=== PATIENT | female | born 1980 | race Caucasian/White ===

== ENCOUNTER 2019-12-15 18:28 | Inpatient (IN) | payer MEDICAID ==
[~2019-12-15] VITALS: Ht 162.6 cm; Wt 68.0 kg
[2019-12-15] MEDS ORDERED: SULI200T4 PO (18:47)
[2019-12-15] MEDS ORDERED: DULO60CA64 PO (18:47)
[2019-12-15] MEDS ORDERED: CARI350T27 PO (18:47)
[2019-12-15] MEDS ORDERED: HYDR-3980 PO (18:47)
[2019-12-15] MEDS ORDERED: FERR325T23 PO (18:47)
[2019-12-15] MEDS ORDERED: GABA600T12 PO (18:47)
[2019-12-15] MEDS ORDERED: TRAM50TA2 PO (18:47)
[2019-12-15] MEDS ORDERED: ERGO500014 PO (18:53)
[2019-12-15 19:00] VITALS: BP 127/72
--- NOTE | 2019-12-15 19:01 | NUR ---
YOUTH MANAGER NOTES RECEIVED PT FROM 2 AMBULANCE PERSONNEL FROM [place] [facility], PT IS AWAKE, ALERT AND ORIENTED, ABLE TO TRANSFER FROM [facility] TO BED, MADE COMFORTABLE, ROOM SET UP ORIENTATION PROVIDED TO PT, VERBALIZED UNDERSTANDING, WITH COMPLAINT OF ABDOMINAL AND BACK PAIN, NOT IN DISTRESS, AWAITING ADMITTING ORDERS FROM MD, KEPT WARM AND COMFORTABLE IN BED.
--- NOTE | 2019-12-15 19:05 | NUR ---
FURNITURE REMOVALIST'S ASSISTANT NOTES RECEIVED PT IN BED AWAKE AND ABLE TO MAKE NEEDS KNOWN. PT A/O X3. RESPIRATIONS EVEN AND UNLABORED WITH NO S/S OF ACUTE DISTRESS OR SOB NOTED AT THIS TIME. AWAITING ADMITTING ORDERS. PT NOTED WITH RAC #20G PATENT AND INTACT AND SL. SAFETY MEASURES IN PLACE WITH BED IN LOWEST LOCKED POSITION WITH SIDE RAILS UP X2. CALL LIGHT WITHIN REACH. WILL CONTINUE TO MONITOR.
[2019-12-15] MEDS ORDERED: LORAZEPAM INJ 2 MG/ML VIAL IV ONE (20:30)
[2019-12-15 20:47] VITALS: BP 121/69
[2019-12-15] MEDS ORDERED: ACETAMINOPHEN 325 MG TABLET PO PRN (21:00)
[2019-12-15] MEDS ORDERED: MAGNESIUM HYDROXIDE 30 ML UDC PO PRN (21:00)
[2019-12-15] MEDS ORDERED: MAG HYDROX/AL HYDROX/SIMETH 30 ML UDC PO PRN (21:00)
[2019-12-15] MEDS ORDERED: MORPHINE SULFATE INJ 2 MG/ML DISP.SYRIN IV PRN (21:00)
[2019-12-15] MEDS ORDERED: ONDANSETRON HCL/PF 4 MG/2 ML VIAL IVP PRN (21:00)
[2019-12-15] MEDS ORDERED: ZOLPIDEM TARTRATE 5 MG TABLET PO PRN (21:00)
[2019-12-15] MEDS ORDERED: ALBUTEROL FS 2.5 MG/3 ML VIAL.NEB NEB PRN (21:30)
[2019-12-15] MEDS: IV NS 0.9% 1,000 ML IV PRN (22:40)
[2019-12-15] MEDS: HYDROCODONE/APAP 5/325MG 1 EACH TABLET PO PRN (23:04)
[2019-12-16] MEDS: TRAMADOL HCL 50 MG TABLET PO PRN ×2 (00:11→17:31)
[2019-12-16 00:59] VITALS: BP 128/67
[2019-12-16] MEDS: LORAZEPAM INJ 2 MG/ML VIAL IV PRN ×5 (02:37→22:05)
[2019-12-16 04:00] VITALS: BP 120/70
[2019-12-16] MEDS: HYDROCODONE/APAP 5/325MG 1 EACH TABLET PO PRN ×4 (04:11→20:07)
--- NOTE | 2019-12-16 07:30 | NUR ---
ACCOUNTANCY PROFESSOR NOTES PT IN BED AWAKE AND ABLE TO MAKE NEEDS KNOWN. PT A/O X3. RESPIRATIONS EVEN AND UNLABORED WITH NO S/S OF ACUTE DISTRESS OR SOB NOTED AT THIS TIME. NO COMPLAINTS OF PAIN AT THIS TIME. PT ON TELE MONITORING WITH NORMAL SINUS RHYTHM. PT NOTED WITH RAC #22G PATENT AND INTACT INFUSING NS @100CC/HR. SAFETY MEASURES IN PLACE WITH BED IN LOWEST LOCKED POSITION WITH SIDE RAILS UP X2. CALL LIGHT WITHIN REACH. WILL ENDORSE TO ONCOMING NURSE FOR CRYSTAL.
--- NOTE | 2019-12-16 07:40 | NUR ---
DINING ROOM CAPTAIN NOTES PATIENT AWAKE IN BED, ALERT AND ORIENTED X3, NO RESPIRATORY DISTRESS, NO C/O PAIN AT THIS TIME. PATIENT'S SKIN WARM TO TOUCH, IV ACCESS SITE INTACT AND PATENT, NS INFUSING AT 100ML/HR ON THE RAC #22G. PATIENT'S NEEDS ATTENDED, BED ON LOWEST LOCKED POSITION, CALL LIGHT WITHIN REACH. WILL CONTINUE TO MONITOR.
[2019-12-16 08:00] VITALS: BP 128/75
[2019-12-16] MEDS: FERROUS SULFATE (325 MG) 325 MG/TAB TABLET PO SCH ×2 (08:29→17:31)
[2019-12-16] MEDS: GABAPENTIN 300 MG CAPSULE PO SCH ×2 (08:29→17:31)
[2019-12-16] MEDS: CARISOPRODOL 350 MG TABLET PO SCH ×3 (08:29→17:30)
[2019-12-16] MEDS: SULINDAC 200 MG TABLET PO SCH ×2 (08:29→17:30)
[2019-12-16] MEDS ORDERED: MULTIVITAMINS,THERAGRAN 1 UDTAB TABLET PO SCH (09:00)
[2019-12-16] MEDS ORDERED: THIAMINE HCL 100 MG TABLET PO SCH (09:00)
[2019-12-16] MEDS ORDERED: DULOXETINE HCL 30 MG CAPSULE.DR PO SCH (09:00)
[2019-12-16] MEDS ORDERED: FOLIC ACID 1 MG TABLET PO SCH (09:00)
[2019-12-16] MEDS: IV NS 0.9% 1,000 ML IV PRN ×2 (09:08→19:09)
[2019-12-16 13:32] LABS: BASOPHILS % (AUTO) 0.6 % (0.0-2.0); EOSINOPHILS % (AUTO) 0.5 % (0.0-6.0); HEMATOCRIT 30 % (33-45); HEMOGLOBIN 9.5 g/dL (11.5-14.8); LYMPHOCYTES # (AUTO) 1.9 /CMM (0.8-4.8); LYMPHOCYTES % (AUTO) 36.5 % (20.0-44.0); MEAN CORPUSCULAR HGB CONC 32 g/dl (31.0-36.0); MEAN CORPUSCULAR VOLUME 80 fL (82-100); MONOCYTES # (AUTO) 0.3 /CMM (0.1-1.30); NEUTROPHILS % (AUTO) 57.4 % (43.0-81.0); PLATELET COUNT (AUTO) 345 /CMM (150-450); RED BLOOD CELL COUNT(AUTO) 3.72 MIL/uL (4.0-5.2); WHITE BLOOD COUNT (AUTO) 5.3 K/uL (4.3-11.0)
[2019-12-16 13:48] LABS: ALBUMIN 3.1 g/dL (3.4-5.0); BILIRUBIN,TOTAL 0.4 mg/dL (0.2-1.0); CALCIUM, SERUM 8.1 mg/dL (8.5-10.1); CREATININE 1.1 mg/dL (0.6-1.3); MAGNESIUM 1.9 mg/dL (1.8-2.4); PHOSPHORUS 2.7 mg/dL (2.5-4.9); POTASSIUM 3.1 mmol/L (3.5-5.1); TOTAL PROTEIN, SERUM 6.6 g/dL (6.4-8.2)
[2019-12-16 13:57] LABS: THYROID STIMULATING HORMONE 0.569 uIU/mL (0.358-3.74)
[2019-12-16 16:00] VITALS: BP 140/84
--- NOTE | 2019-12-16 18:44 | NUR ---
M/S RN NOTES PATIENT RESTING IN BED, NO RESPIRATORY DISTRESS, NO C/O PAIN AT THIS TIME. PATIENT'S SKIN WARM TO TOUCH, IV ACCESS SITE INTACT AND PATENT. PATIENT'S NEEDS ATTENDED, BED ON LOWEST LOCKED POSITION, CALL LIGHT WITHIN REACH. WILL ENDORSE TO ONCOMING NURSE.
--- NOTE | 2019-12-16 19:05 | NUR ---
MS RN NOTES RECEIVED PT BED AWAKE AND ABLE TO MAKE NEEDS KNOWN. PT A/O X3. RESPIRATIONS EVEN AND UNLABORED WITH NO S/S OF ACUTE DISTRESS OR SOB NOTED. NO COMPLAINTS OF PAIN AT THIS TIME. PT NOTED WITH IV #22G RAC PATENT AND INTACT INFUSING AT 100ML/HR. SAFETY MEASURES IN PLACE WITH BED IN LOWEST LOCKED POSITION WITH SIDE RAILS UP X2. CALL LIGHT WITHIN REACH. WILL CONTINUE TO MONITOR.
[2019-12-16 20:00] VITALS: BP 129/79
--- NOTE | 2019-12-16 23:30 | NUR ---
MS RN NOTES PT NOTED NOT IN ROOM. WENT TO CHECK, PT NOT IN ROOM. LOOKED ON UNIT, PT NOT NOT ON IT. CHECKED [place], AND ON OTHER FLOORS, NOT SEEN. HOSPITAL WORKER STATED THEY SAW HER SNEAK OUT BACK STAIRS ON UNIT. CHECK STAIRS PT NOT THERE. NOTIFIED SECURITY TO CHECK [facility]ER[facility]. PT NOTED LEAVING UNIT AND LEAVING HOSPITALS. CHECKED OUTSIDE WHERE CAMERAS SHOWED WELL AROUND THE HOSPITAL PREMESIS, AND PT NOT FOUND. PT NOTED TO STILL HAVE IV ACCESS. CHARGE NURSE, NURSE CAKE STRIPPER, MD, AND POLICE MADE AWARE.
[2019-12-21] MEDS ORDERED: ERGOCALCIFEROL (VITAMIN D 2) 50,000 UNIT CAPSULE PO SCH (21:00)
== END 2019-12-16 22:30 | disposition left against medical advice (07) | DRG 816 ==
LOC: TELE 18:28 → MED 12-16 10:16
PROVIDERS: ADMIT Nurse Practitioner Acute Care; ATTEND Registered Nurse
DX: T52.92XA Toxic effect of unspecified organic solvent, intentional self-harm, initial encounter (principal); I31.3 Pericardial effusion (noninflammatory); F10.239 Alcohol dependence with withdrawal, unspecified; F32.9 Major depressive disorder, single episode, unspecified; G40.909 Epilepsy, unspecified, not intractable, without status epilepticus; M79.7 Fibromyalgia; F41.0 Panic disorder [episodic paroxysmal anxiety]; F41.9 Anxiety disorder, unspecified; J45.909 Unspecified asthma, uncomplicated; T51.2X2A Toxic effect of 2-Propanol, intentional self-harm, initial encounter; Y92.89 Other specified places as the place of occurrence of the external cause; Z87.891 Personal history of nicotine dependence
CPT/HCPCS: 36415; 80053-TC; 80061-TC; 83735-TC; 84100-TC; 84443-TC; 84703-TC; 85025-TC; 87081-TC; 93307-TC; G0378; J2060; J7030